=== PATIENT | female | born 1950 | race Caucasian/White ===

== ENCOUNTER 2017-05-09 21:16 | Inpatient (IN) | payer OTHER ==
[~2017-05-09] VITALS: Ht 162.6 cm; Wt 107.1 kg
[2017-05-09 22:01] LABS: Basophils # (auto) 0 uL; Basophils % (auto) 0.3 % (0.0-2.0); Eosinophils # (auto) 0.1 uL; Eosinophils % (auto) 0.7 % (0.0-7.0); Hematocrit 43.4 % (36.0-46.0); Hemoglobin 15.1 g/dL (12.2-16.2); Lymphocytes # (auto) 0.5 uL; Lymphocytes % (auto) 4.9 % (10.0-50.0); Mean Corpuscular Hemoglobin 31.3 pg (28.0-32.0); Mean Corpuscular Hgb Conc. 34.9 g/dL (32.0-36.0); Mean Corpuscular Volume 89.8 fL (80.0-100.0); Monocytes # (auto) 0.7 uL; Monocytes % (auto) 7.4 % (0.0-12.0); Neutrophils # (auto) 8.2 uL; Neutrophils % (auto) 86.7 % (37.0-80.0); Platelet Count (auto) 250 10^3/uL (140-450); Red Blood Cells 4.84 10^6/uL (4.0-5.20); White Blood Cell 9.5 10^3/uL (4.4-10.8)
[2017-05-09 22:27] LABS: Albumin 4.5 g/dL (3.4-5.0); BUN/Creatinine Ratio 18.5; Calcium 9.4 mg/dL (8.5-10.1); Potassium 3.8 mmol/L (3.5-5.1)
[2017-05-09 22:30] LABS: Bilirubin, Total 0.4 mg/dL (0.2-1.0); Total Protein 8.5 g/dL (6.4-8.2)
[2017-05-09] MEDS ORDERED: SODIUM CHLORIDE 0.9% 1,000 ML IV ONE (23:45)
[2017-05-10] MEDS ORDERED: metroNIDAZOLE 500MG/100ML 100 ML IV ONE (02:00)
[2017-05-10] MEDS ORDERED: SODIUM CHLORIDE 0.9% 1,000 ML IV ONE (02:00)
[2017-05-10] MEDS ORDERED: cefTRIAXone 1GM/10ml IVPUSH 10 ML IV ONE (02:00)
[2017-05-10] MEDS ORDERED: LOPERAMIDE HCL 2 MG CAP PO ONE (05:45)
[2017-05-10] MEDS ORDERED: SODIUM CHLORIDE 0.9% 500 ML IV ONE (05:45)
[2017-05-10] MEDS ORDERED: ACETAMINOPHEN 325 MG TAB PO PRN (05:45)
[2017-05-10] MEDS ORDERED: ONDANSETRON HCL 4 MG/2 ML VIAL IV PRN (05:45)
[2017-05-10] MEDS ORDERED: LOPERAMIDE HCL 2 MG CAP PO PRN (05:45)
[2017-05-10] MEDS ORDERED: HYDROcodone-ACET 5/325MG TAB PO PRN (05:45)
[2017-05-10] MEDS: SODIUM CHLORIDE 0.9% 1,000 ML IV SCH ×2 (07:58→15:45)
[2017-05-10 09:25] VITALS: BP 150/68
[2017-05-10] MEDS: ENOXAPARIN SOD 40 MG/0.4 ML SYRINGE SC SCH (10:04)
[2017-05-10] MEDS: PANTOPRAZOLE 40 MG/10 ML VIAL IV SCH (10:06)
[2017-05-10] MEDS: LISINOPRIL 10 MG TAB PO SCH (10:06)
[2017-05-10] MEDS: cefTRIAXone 1GM/10ml IVPUSH 10 ML IV SCH (10:08)
[2017-05-10 13:00] VITALS: BP 143/68
[2017-05-10 13:31] LABS: Basophils # (auto) 0 uL; Basophils % (auto) 0.5 % (0.0-2.0); Eosinophils # (auto) 0 uL; Eosinophils % (auto) 0.3 % (0.0-7.0); Hematocrit 42.6 % (36.0-46.0); Hemoglobin 14.2 g/dL (12.2-16.2); Lymphocytes # (auto) 0.9 uL; Lymphocytes % (auto) 10.4 % (10.0-50.0); Mean Corpuscular Hemoglobin 30.5 pg (28.0-32.0); Mean Corpuscular Hgb Conc. 33.3 g/dL (32.0-36.0); Mean Corpuscular Volume 91.8 fL (80.0-100.0); Monocytes % (auto) 12.4 % (0.0-12.0); Neutrophils # (auto) 6.3 uL; Neutrophils % (auto) 76.4 % (37.0-80.0); Nucleated Red Blood Cells % 0.1 %; Platelet Count (auto) 216 10^3/uL (140-450); Red Blood Cells 4.64 10^6/uL (4.0-5.20); Red Cell Distribution Width 13.3 % (11.8-14.3); White Blood Cell 8.3 10^3/uL (4.4-10.8)
[2017-05-10] MEDS ORDERED: HCTZ25T PO (13:44)
[2017-05-10] MEDS ORDERED: LISI10TA6 PO (13:44)
[2017-05-10 13:53] LABS: BUN/Creatinine Ratio 13.3; Bilirubin, Total 0.3 mg/dL (0.2-1.0); Calcium 8.3 mg/dL (8.5-10.1); Magnesium 2.3 mg/dL (1.6-2.6); Potassium 3.2 mmol/L (3.5-5.1)
[2017-05-10] MEDS: metroNIDAZOLE 500MG/100ML 100 ML IV SCH ×2 (15:09→23:31)
[2017-05-10 17:26] VITALS: BP 171/78
[2017-05-10] MEDS: DIPHENOXYLATE W/ATROPINE 2.5 MG TAB PO SCH ×2 (17:52→23:31)
[2017-05-10 22:00] VITALS: BP 158/79
[2017-05-11] MEDS: SODIUM CHLORIDE 0.9% 1,000 ML IV SCH (01:45)
[2017-05-11 05:00] VITALS: BP 148/72
[2017-05-11] MEDS: metroNIDAZOLE 500MG/100ML 100 ML IV SCH (06:00)
[2017-05-11] MEDS: DIPHENOXYLATE W/ATROPINE 2.5 MG TAB PO SCH (06:00)
[2017-05-11 06:23] LABS: Basophils # (auto) 0 uL; Basophils % (auto) 0.2 % (0.0-2.0); Eosinophils # (auto) 0 uL; Eosinophils % (auto) 0.5 % (0.0-7.0); Hematocrit 39.1 % (36.0-46.0); Hemoglobin 13.5 g/dL (12.2-16.2); Lymphocytes # (auto) 0.7 uL; Mean Corpuscular Hemoglobin 31.2 pg (28.0-32.0); Mean Corpuscular Hgb Conc. 34.4 g/dL (32.0-36.0); Mean Corpuscular Volume 90.7 fL (80.0-100.0); Monocytes # (auto) 0.7 uL; Monocytes % (auto) 10.9 % (0.0-12.0); Neutrophils # (auto) 5.1 uL; Neutrophils % (auto) 77.4 % (37.0-80.0); Nucleated Red Blood Cells % 0.1 %; Platelet Count (auto) 198 10^3/uL (140-450); Red Blood Cells 4.31 10^6/uL (4.0-5.20); Red Cell Distribution Width 13.2 % (11.8-14.3); White Blood Cell 6.6 10^3/uL (4.4-10.8)
[2017-05-11 06:39] LABS: Potassium 3.2 mmol/L (3.5-5.1)
[2017-05-11 06:47] LABS: Albumin 3.5 g/dL (3.4-5.0); BUN/Creatinine Ratio 9.1; Calcium 8.1 mg/dL (8.5-10.1); Magnesium 2.1 mg/dL (1.6-2.6)
[2017-05-11 06:49] LABS: Bilirubin, Total 0.3 mg/dL (0.2-1.0); Total Protein 7.1 g/dL (6.4-8.2)
[2017-05-11 08:16] VITALS: BP 145/79
[2017-05-11] MEDS ORDERED: POTASSIUM CHL 20 Meq TABLET PO ONE (10:30)
[2017-05-11] MEDS: PANTOPRAZOLE 40 MG/10 ML VIAL IV SCH (10:30)
[2017-05-11] MEDS: cefTRIAXone 1GM/10ml IVPUSH 10 ML IV SCH (10:30)
[2017-05-11] MEDS: LISINOPRIL 10 MG TAB PO SCH (10:31)
[2017-05-11] MEDS: ENOXAPARIN SOD 40 MG/0.4 ML SYRINGE SC SCH (10:31)
[2017-05-11 11:30] VITALS: BP 145/79
[2017-05-11 11:44] VITALS: BP 148/77
== END 2017-05-11 13:10 | disposition home or self-care (01) | DRG 641 ==
LOC: ER 21:16 → OVERFLOW 21:17 → WEST WING 05-10 09:25 → UNDODISIN 05-11 13:18
PROVIDERS: ADMIT Nurse Practitioner; ATTEND Family Medicine
DX: E86.0 Dehydration (principal); K52.9 Noninfective gastroenteritis and colitis, unspecified; E66.01 Morbid (severe) obesity due to excess calories; Z68.41 Body mass index [BMI] 40.0-44.9, adult; I10 Essential (primary) hypertension; K57.30 Diverticulosis of large intestine without perforation or abscess without bleeding
CPT/HCPCS: 36415; 71045; 74176; 80053; 82962; 83690; 83735; 84484; 85025; 85048; 87045; 87493; 87899; 93005; 96361; 96365; 96375; C9113; J3490

== ENCOUNTER 2023-04-27 12:48 | Emergency (ER) | payer OTHER ==
[~2023-04-27] VITALS: Ht 172.7 cm; Wt 106.8 kg
[~2023-04-27 12:48] MED LIST: HYDR25TA5 PO; LISI10TA34 PO
[2023-04-27] MEDS ORDERED: SODIUM CHLORIDE 0.9% 1,000 ML IVB ONE (13:15)
[2023-04-27 14:15] LABS: Basophils # (auto) 0.1 10 ^3/uL (0-0.2); Basophils % (auto) 0.9 % (0.0-2.0); Eosinophils # (auto) 0 10 ^3/uL (0-0.8); Eosinophils % (auto) 0.5 % (0.0-7.0); Hemoglobin 12.8 g/dL (12.2-16.2); Lymphocytes # (auto) 1.4 10 ^3/uL (0.4-5.4); Lymphocytes % (auto) 16.2 % (10.0-50.0); Mean Corpuscular Hemoglobin 31.2 pg (28.0-32.0); Mean Corpuscular Hgb Conc. 33.7 g/dL (32.0-36.0); Mean Corpuscular Volume 92.6 fL (80.0-100.0); Monocytes % (auto) 11.6 % (0.0-12.0); Neutrophils # (auto) 6.2 10 ^3/uL (1.6-8.6); Neutrophils % (auto) 70.8 % (37.0-80.0); Red Blood Cells 4.11 10^6/uL (4.0-5.20); Red Cell Distribution Width 13.1 % (11.8-14.3); White Blood Cell 8.7 10^3/uL (4.4-10.8)
[2023-04-27 14:31] LABS: Alanine Aminotransferase 17 U/L (7-40); Albumin 4.4 g/dL (3.2-4.8); Alkaline Phosphatase 64 U/L (46-116); Anion Gap 10 (5-15); Aspartate Aminotransferase 28 U/L (13-40); BUN/Creatinine Ratio 9.7 (10.0-20.0); Blood Urea Nitrogen 11 mg/dL (9-23); Calcium 9.6 mg/dL (8.5-10.1); Carbon Dioxide 26 mmol/L (20-30); Chloride 100 mmol/L (98-107); Glucose 122 mg/dL (74-106); Sodium 136 mmol/L (136-145)
[2023-04-27 14:32] LABS: Bilirubin, Total 0.4 mg/dL (0.2-1.0); Total Protein 7.1 g/dL (5.7-8.2)
[2023-04-27 17:45] VITALS: PULSE 62; RESP 16; O2SAT 99
[2023-04-27 17:53] VITALS: BP 169/79; PULSE 62; RESP 16; TEMP 98.4; O2SAT 99
== END 2023-04-27 18:25 | disposition short-term general hospital (02) ==
LOC: EDUNIT# 12:48 → EDBD 12:48 → ER 12:48
DX: R55 Syncope and collapse (principal); R00.1 Bradycardia, unspecified; I95.9 Hypotension, unspecified; I10 Essential (primary) hypertension
CPT/HCPCS: 36415; 80053; 84484; 85025; 93005; 96360; 96361; 99285; J7030